=== PATIENT | male | born 1980 | race Caucasian/White ===

== ENCOUNTER 2020-07-03 12:12 | Emergency (ER) | payer SELFPAY ==
[2020-07-03] MEDS ORDERED: diltiaZEM INJ 5 MG/ML VIAL IVP STA ×2 (12:21→13:51)
--- NOTE | 2020-07-03 12:24 | ED Physician Documentation ---
History of Present Illness - Stated complaint Stated Complaint: CP,FAST HEART RATE - History obtained from History obtained from: Patient - Additonal information Additional information: 39yo with hx recurrent a-fib has been with rapid palpitations since 1AM. Has been cardioverted in the past. Currently on n meds d/t chg in insurance. Was on eliquis in the past. Review of Systems Ten Systems: 10 systems reviewed and negative Constitutional: denies: Fever, Chills, Myalgias Throat: denies: Dental pain / toothache Cardiac: reports: Palpitations. denies: Chest pain / pressure Respiratory: denies: Dyspnea, Cough PD PAST MEDICAL HISTORY - Past Medical History Past Medical History: Yes Cardiovascular: Atrial fibrillation Endocrine/Autoimmune: None - Past Surgical History Past Surgical History: No - Present Medications Home Medications: Ambulatory Orders Medication Instructions Recorded Confirmed Apixaban [Eliquis] 5 mg PO BID #120 tablet 07/03/20 Aspirin [Adult Aspirin Regimen] 162 mg PO BID 07/03/20 07/03/20 Metoprolol Succinate 25 mg PO DAILY #90 tab.er.24h 07/03/20 - Allergies Allergies/Adverse Reactions: Allergies Allergy/AdvReac Type Severity Reaction Status Date / Time No Known Drug Allergies Allergy Verified 07/03/20 12:26 - Living Situation Living Situation: reports: With family - Social History Does the pt drink ETOH?: No PD ED PE NORMAL - Vitals Vital signs reviewed: Yes - General General: Alert and oriented X 3, No acute distress - HEENT HEENT: PERRL, EOMI - Neck Neck: Supple, no meningeal sign, No bony TTP - Cardiac Cardiac: Other (rapid/irreg) - Respiratory Respiratory: No respiratory distress, Clear bilaterally - Abdomen Abdomen: Soft, Non tender - Back Back: No CVA TTP, No spinal TTP - Derm Derm: Normal color, Warm and dry - Extremities Extremities: No edema, No calf tenderness / cord - Neuro Neuro: Alert and oriented X 3, Normal speech Results - Vitals Vitals: Vital Signs - 24 hr 07/03/20 07/03/20 07/03/20 12:26 12:39 13:00 Temperature 36.5 C Heart Rate 168 H 136 H 110 H Respiratory 24 24 18 Rate Blood Pressure 154/95 H 115/64 128/86 H O2 Saturation 100 99 97 07/03/20 07/03/20 07/03/20 13:53 14:00 14:22 Temperature 36.9 C Heart Rate 111 H 102 H 110 H Respiratory 204 H 23 24 Rate Blood Pressure 127/77 133/82 H 124/67 O2 Saturation 98 99 99 07/03/20 07/03/20 07/03/20 15:00 15:09 15:16 Temperature Heart Rate 124 H 920 H 96 Respiratory 20 23 18 Rate Blood Pressure 116/75 132/82 H 109/96 H O2 Saturation 100 98 96 Oxygen O2 Source Nasal cannula - EKG (time done) 1216 Rate: Rate (enter#) (168) Rhythm: Atrial fibrillation [place]: Normal Intervals: Other (mild LBBB) Computer interpretation: Agree with computer 1512 Rate: Rate (enter#) (92) Rhythm: NSR, LAE [place]: Normal Intervals: Normal SC QRS: Normal Ischemia: Non specific changes - Labs Labs: Laboratory Tests 07/03/20 07/03/20 07/03/20 12:33 12:33 12:33 WBC 9.2 RBC 5.21 Hgb 15.1 Hct 43.7 MCV 83.9 MCH 29.0 MCHC 34.6 RDW 12.6 Plt Count 306 MPV 9.0 Neut # (Auto) 6.0 Lymph # (Auto) 2.5 [place] # (Auto) 0.5 Eos # (Auto) 0.1 Baso # (Auto) 0.1 Absolute Nucleated RBC 0.00 Nucleated RBC % 0.0 Sodium 135 Potassium 4.0 Chloride 103 Carbon Dioxide 20 L Anion Gap 12.0 BUN 12 Creatinine 0.7 Estimated GFR (MDRD) 125 Glucose 294 H Calcium 9.1 Magnesium 2.0 TSH 1.18 Procedures - Procedural sedation Sedation prep: Time out completed, PE performed, ASA 2 - mild disease Sedation medications: propofol (130mg IVP) Patient status during sedation: Responds to tactile, Maintained airway Sedation recovery: Recovered uneventfully Time in sedation (Minutes): 15 - Cardioversion 1 Time of attempt: 15:00 Indication: Tachyarrhythmia Risks, benefits, alternatives explained to: Pt Meds: Propofol CS via: AP approach Sync: Biphasic, 100j Post cardioversion rhythm: NSR Performed by: ED MD [facility] MEDICAL DECISION MAKING - ED course ED course: 39-year-old gentleman with recurrent paroxysmal rapid atrial fibrillation. He is off of his medications including Eliquis, metoprolol, and insulin. He does have a history of diabetes. We slowed him down with a couple of doses of diltiazem, but rhythm control was not obtained and he did prefer rhythm control strategy. Procainamide 1 g over 1 hour was unsuccessful, and he was sedated and shocked into sinus rhythm on the first shock. He did not want refills of his insulin right now, prefers to follow-up outpatient for that but did agree to Eliquis and metoprolol. He has a history of TIA per him, so probably does need to be anticoagulated. Departure - Departure Disposition: Home, Self Care Clinical Impression: Atrial fibrillation Qualifiers: Atrial fibrillation type: paroxysmal Qualified Code(s): I48.0 - Paroxysmal atrial fibrillation Condition: Good Record reviewed to determine appropriate education?: Yes Instructions: Atrial Fibrillation Dc Prescriptions: Apixaban [Eliquis] 5 mg PO BID #120 tablet Metoprolol Succinate 25 mg PO DAILY #90 tab.er.24h Comments: You were seen today for recurrent atrial fibrillation. We tried some medications to slow you down and get you out of it. We were able to slow you down but you need to be shocked once at 100 J to get you out of it. A dose of about 120 mg of propofol seemed about appropriate for you. Return if worsening. It is important to set up primary care, endocrinology follow-up and cardiology follow-up. Your blood sugar was 298. For the Eliquis, which can be quite expensive, go to the following website to find a coupon. [email or web address]
[2020-07-03 12:41] LABS: BASOPHILS # (AUTO) 0.1 10^3/uL (0.0-0.1); BASOPHILS % (AUTO) 0.5 %; EOSINOPHILS # (AUTO) 0.1 10^3/uL (0.0-0.7); EOSINOPHILS % (AUTO) 0.7 %; HGB - HEMOGLOBIN 15.1 g/dL (14.0-18.0); LYMPHOCYTES # (AUTO) 2.5 10^3/uL (1.5-3.5); MEAN CORPUSCULAR HGB CONC 34.6 g/dL (32.0-36.0); MEAN CORPUSCULAR VOLUME 83.9 fL (80.0-94.0); MONOCYTES # (AUTO) 0.5 10^3/uL (0.0-1.0); MONOCYTES % (AUTO) 5.6 %; NEUTROPHILS % (AUTO) 65.8 %; PLT - PLATELET COUNT 306 10^3/uL (130-450); RED BLOOD COUNT 5.21 10^6/uL (4.70-6.10); RED CELL DISTRIBUTION WIDTH 12.6 % (12.0-15.0); WHITE BLOOD COUNT 9.2 x10^3/uL (4.8-10.8)
[2020-07-03] MEDS ORDERED: PROCAINAMIDE 1,000 MG in SODIUM CHLORIDE 0.9% 240 ML IV STA (12:47)
[2020-07-03 12:50] LABS: CALCIUM 9.1 mg/dL (8.5-10.3); CREATININE 0.7 mg/dL (0.6-1.2)
[2020-07-03] MEDS ORDERED: PROPOFOL 200 MG/20 ML VIAL IVP STA (14:42)
[2020-07-03 15:52] VITALS: BP 152/70
== END 2020-07-03 15:58 | disposition home or self-care (01) ==
LOC: ED 12:12
DX: I48.0 Paroxysmal atrial fibrillation (principal); T38.3X6A Underdosing of insulin and oral hypoglycemic [antidiabetic] drugs, initial encounter; T45.516A Underdosing of anticoagulants, initial encounter; T44.7X6A Underdosing of beta-adrenoreceptor antagonists, initial encounter; Z91.128 Patient's intentional underdosing of medication regimen for other reason; Z79.82 Long term (current) use of aspirin; R73.9 Hyperglycemia, unspecified
CPT/HCPCS: 36415; 80048; 83735; 84443; 85025; 93005; 96365; 96375; 96376; 99152; 99283; 99285; J2690; 94770